=== PATIENT | male | born 1990 | race Hispanic/Latino ===

== ENCOUNTER 2019-02-01 22:27 | Emergency (ER) | payer SELFPAY ==
[2019-02-01] MEDS ORDERED: Alum Hydrox/Mag Hydrox/Simeth 30 ML, Lidocaine 2% 15 ML PO STA ×2 (23:06)
[2019-02-02] MEDS ORDERED: Famotidine 20 MG Tab PO STA (00:09)
--- NOTE | 2019-02-02 00:22 | EDM.PDOC ---
ED HPI GENERAL MEDICAL PROBLEM - General Chief Complaint: Chest Pain Stated Complaint: CHEST PAIN Time Seen by Provider: 02/02/19 00:01 Source of Information: Reports: Patient, RN Notes Reviewed History Limitations: Reports: No Limitations - History of Present Illness INITIAL COMMENTS - FREE TEXT/NARRATIVE: The patient reports epigastric pain, sharp and stabbing in character, on off for the past 3 days. The pain tends to be worse before he eats something, better after area he notes that it is worse if he is working strenuously. No prior similar symptoms. Based on the triage note, I ordered a GI cocktail, and the patient reports significant improvement in his symptoms after drinking the GI cocktail. The patient does not have a PCP. Middle Epigastric Pain Score (Numeric/FACES): 7 - Related Data Allergies Allergy/AdvReac Type Severity Reaction Status Date / Time No Known Allergies Allergy Verified 02/01/19 22:45 Home Meds: Home Meds . [No Known Home Meds] 02/01/19 [History] Past Medical History Endocrine/Metabolic History: Reports: Obesity/BMI 30+ Social & Family History - Tobacco Use Smoking Status *Q: Current Every Day Smoker Years of Tobacco use: 3 Packs/Tins Daily: 0.2 - Caffeine Use Caffeine Use: Reports: Coffee - Alcohol Use Alcohol Use History: Yes Alcohol Use Frequency: Socially - Recreational Drug Use Recreational Drug Use: No - Living Situation & Occupation Living situation: Reports: Single, Alone Occupation: Employed ([employer]) ED ROS GENERAL - Review of Systems Review Of Systems: ROS reveals no pertinent complaints other than HPI. ED EXAM, GI/ABD - Physical Exam Exam: See Below Exam Limited By: No Limitations General Appearance: Alert, WD/WN, No Apparent Distress Eyes: Bilateral: Normal Appearance, EOMI Ears: Normal External Exam, Hearing Grossly Normal Nose: Normal Inspection Throat/Mouth: Normal Inspection, Normal Lips, Normal Voice, No Airway Compromise Head: Atraumatic, Normocephalic Neck: Normal Inspection, Full Range of Motion Respiratory/Chest: No Respiratory Distress, Lungs Clear, Normal Breath Sounds, No Accessory Muscle Use Cardiovascular: Normal Peripheral Pulses, Regular Rate, Rhythm, No Gallop, No JVD, No Murmur, No Rub GI/Abdominal Exam: Normal Bowel Sounds, Soft, Non-Tender (including the epigastrium), No Organomegaly, No Distention, No Abnormal Bruit, No Mass, Other (Obese) (Male) Exam: Deferred Rectal (Males) Exam: Deferred Back Exam: Normal Inspection, Full Range of Motion, NT Extremities: Normal Inspection, Normal Range of Motion, No Pedal Edema, Normal Capillary Refill Neurological: Alert, Oriented, Normal Cognition, No Motor/Sensory Deficits Psychiatric: Normal Affect Skin Exam: Warm, Dry, Intact, Normal Color, No Rash Course - Vital Signs Last Recorded V/S: Last Vital Signs Temp 36.7 C 02/01/19 22:42 Pulse 65 02/01/19 22:42 Resp 20 02/01/19 22:42 BP 125/81 02/01/19 22:42 Pulse Ox 97 02/01/19 22:42 - Orders/Labs/Meds Meds: Medications Discontinued Medications Generic Name Dose Route Start Last Admin Trade Name Titi PRN Reason Stop Dose Admin Al Hydroxide/Mg Hydroxide 30 0 ml 02/01/19 23:06 02/01/19 23:17 ml/ Lidocaine HCl 15 ml PO 02/01/19 23:07 45 ml ONETIME STA Administration Famotidine 40 mg 02/02/19 00:09 02/02/19 00:20 Pepcid PO 02/02/19 00:10 40 mg ONETIME STA Administration - Re-Assessments/Exams Free Text/Narrative Re-Assessment/Exam: 02/02/19 00:10 The patient reports significant improvement in his epigastric pain following a GI cocktail, indicating that his pain is due to either GERD or gastritis. He will receive 40 mg of oral famotidine here in the ED, and I am going to recommend that he start taking one tablet of [id number] famotidine once a day. If that fails to control his symptoms, he should increase it to one tablet twice a day, and if that fails to control his symptoms, he would need to move up to a PPI, but under those circumstances, I would like him to undergo an EGD, to make sure that there is nothing more serious going on, such as an ulcer. I will therefore refer him to the clinic, as well. Departure - Departure Time of Disposition: 00:22 Disposition: Home, Self-Care 01 Condition: Good Clinical Impression: Gastritis - Discharge Information *PRESCRIPTION DRUG MONITORING PROGRAM REVIEWED*: Not Applicable *COPY OF PRESCRIPTION DRUG MONITORING REPORT IN PATIENT SLIME: Not Applicable Instructions: Gastritis, Adult Referrals: Aminata Guy PA [Physician [employer] Manager] - Forms: ED Department Discharge Additional Instructions: You were seen in the emergency room for upper midline abdominal pain on and off for the past 3 days. Your symptoms significantly improved after you drank a GI cocktail in the ER, indicating that your pain is from your stomach. Based on your history and physical examination, you are most likely suffering from gastritis or GERD. You have been started on the antacid famotidine (Pepcid). We recommend that you start taking [id number] famotidine, one tablet once a day. If one tablet of famotidine once a day does not adequately control your symptoms , you may increase the dosage to one tablet twice a day. If that does not adequately control your symptoms, you may need to move to a stronger antacid medicine, such as a PPI (proton pump inhibitor), however, under those circumstances, we would want you to undergo an EGD (scope of your stomach). You may follow-up in the clinic, under those circumstances. If any other problems, please do not hesitate to return to the ER.
== END 2019-02-02 00:45 | disposition home or self-care (01) ==
LOC: JD.ED 22:27
DX: K29.70 Gastritis, unspecified, without bleeding (principal); E66.9 Obesity, unspecified; F17.210 Nicotine dependence, cigarettes, uncomplicated; Z68.33 Body mass index [BMI] 33.0-33.9, adult
CPT/HCPCS: 99284; A9270